=== PATIENT | male | born 1965 | race African-American/Black ===

== ENCOUNTER 2020-11-12 14:31 | Inpatient (IN) ==
[2020-11-12] MEDS ORDERED: Isovue-370 500 ML BOTTLE IVP ONE (15:55)
[2020-11-12] MEDS ORDERED: Morphine Sulfate 2 MG/ML SYRINGE IVP ONE (16:00)
[2020-11-12] MEDS ORDERED: 0.9 % Sodium Chloride 1,000 ML IV ONE (16:00)
[2020-11-12 17:08] LABS: Basophils % 0.1 %; Hematocrit 48.6 % (37.5-50.1); Immature Granulocytes % 0.8 % (0-4); Lymphocytes # 0.5 K/mcL (0.6-4.6); Lymphocytes % 3.3 %; Mean Corpuscular HGB Conc 32.9 g/dL (31.6-35.5); Mean Corpuscular Hemoglobin 29.4 pg (28.0-33.3); Mean Corpuscular Volume 89.3 fL (83.0-100.0); Mean Platelet Volume 10.8 fL (9.4-12.4); Monocytes # 0.2 K/mcL (0.0-1.3); Monocytes % 1.5 %; Neutrophils # 13.2 K/mcL (1.6-8.9); Platelet Count 135 K/mcL (140-400); Red Blood Count 5.44 M/mcL (4.19-5.50); Red Cell Distribution Width 13.4 % (11.5-14.5); Segmented Neutrophils % 94.3 %
[2020-11-12 17:15] LABS: INR 1.7; Prothrombin Time 19.4 Seconds (9.4-12.1)
[2020-11-12 17:18] LABS: Activated Partial Thrombo Time 26.3 Seconds (26.0-36.0)
[2020-11-12 18:35] LABS: Bilirubin,Urine Negative (Negative); Blood,Urine Large (Negative); Budding Yeast,Urine Few per hpf (None Seen); Clarity,Urine Turbid (Clear); Color,Urine Yellow (Yellow); Glucose,Urine (UA) 100 mg/dL (Normal); Ketones,Urine Negative (Negative); Leukocyte Esterase,Urine Negative (Negative); Mucus,Urine Few per lpf (None-Few); Nitrite,Urine Negative (Negative); PH,Urine 5.5 pH Units (5.0-8.0); Protein,Urine 100 mg/dL (Neg-Trace); Squamous Epithelial Cell,Urine Few per hpf (None-Few)
[2020-11-12 18:43] LABS: Amphetamine Screen,Urine Positive ng/mL (Cutoff=1000); Barbiturate Screen,Urine Negative ng/mL (Cutoff=200); Benzodiazepines Screen,Urine Negative ng/mL (Cutoff=200); Cannabinoid Screen,Urine Negative ng/mL (Cutoff = 50); Cocaine Screen,Urine Positive ng/mL (Cutoff= 300); Opiate Screen,Urine Positive ng/mL (Cutoff=300); Phencyclidine Screen,Urine Negative ng/mL (Cutoff=25)
[2020-11-12 18:51] LABS: Albumin 3.5 g/dL (3.5-5.7); Albumin/Globulin Ratio 1.3 (1.1-2.2); Alkaline Phosphatase 44 Units/L (34-104); BUN/Creatinine Ratio 9 (6-26); Bilirubin,Total 0.8 mg/dL (0.3-1.0); Blood Urea Nitrogen 36 mg/dL (6-20); Calcium 7.2 mg/dL (8.6-10.3); Carbon Dioxide 24 mEq/L (23-29); Chloride 99 mEq/L (98-107); Ethanol < 10 mg/dL (Less than 10); Globulin 2.6 g/dL (2.4-3.5); Glucose 113 mg/dL (70-105); Lipase 39 Units/L (11-82); Magnesium 2.2 mg/dL (1.6-2.6); Osmolality,Calculated 289 (280-300); Potassium 4.6 mEq/L (3.5-5.1); Sodium 135 mEq/L (136-145); Total Protein 6.1 g/dL (6.4-8.9); Troponin I 0.35 ng/mL (< 0.04); eGFR For African Americans 18 (> 60); eGFR For Non-African Americans 15 (> 60)
[2020-11-12 19:03] LABS: Alanine Aminotransferase 2381 Units/L (7-52); Aspartate Amino Transferase > 3000 Units/L (13-39); Creatine Kinase > 20000 Units/L (30-223); Thyroid Stimulating Hormone 1.464 mcIU/mL (0.340-5.600)
[2020-11-12] MEDS: 0.9 % Sodium Chloride 1,000 ML IVC SCH ×2 (20:13→22:28)
[2020-11-12] MEDS ORDERED: Ondansetron 4 MG/2 ML VIAL IVP ONE (21:24)
[2020-11-12] MEDS ORDERED: Naloxone 0.4 MG/ML INJ IVP PRN (22:31)
[2020-11-12] MEDS ORDERED: *HR* LORazepam 2 MG/ML VIAL IVP PRN ×3 (22:40)
[2020-11-12] MEDS ORDERED: 0.9 % Sodium Chloride 1,000 ML IVC SCH (22:45)
[2020-11-12] MEDS: Ondansetron 4 MG/2 ML VIAL IVP PRN (23:55)
[2020-11-13] MEDS ORDERED: Perflutren Lipid Microsphere 1.3 ML in 0.9 % Sodium Chloride 8.7 ML IVP PRN (00:05)
[2020-11-13 00:33] LABS: Basophils % 0.2 %; Eosinophils % 0.2 %; Hematocrit 46.6 % (37.5-50.1); Hemoglobin 15.3 g/dL (12.9-16.9); Immature Granulocytes % 0.5 % (0-4); Lymphocytes # 0.6 K/mcL (0.6-4.6); Lymphocytes % 4.4 %; Mean Corpuscular HGB Conc 32.8 g/dL (31.6-35.5); Mean Corpuscular Hemoglobin 29.5 pg (28.0-33.3); Monocytes # 0.2 K/mcL (0.0-1.3); Monocytes % 1.9 %; Neutrophils # 11.7 K/mcL (1.6-8.9); Platelet Count 122 K/mcL (140-400); Red Blood Count 5.18 M/mcL (4.19-5.50); Red Cell Distribution Width 13.2 % (11.5-14.5); Segmented Neutrophils % 92.8 %; White Blood Count 12.6 K/mcL (4.3-11.1)
[2020-11-13 00:52] LABS: Calcium 7.1 mg/dL (8.6-10.3); Potassium 4.9 mEq/L (3.5-5.1)
[2020-11-13] MEDS ORDERED: Prochlorperazine 10 MG/2 ML VIAL IVP ONE (01:03)
[2020-11-13 01:24] LABS: VBG HCO3 22 mEq/L (21-27); VBG PCO2 40 mmHg (41-51); VBG PH 7.35 pH Units (7.32-7.42); VBG PO2 130 mmHg (25-50)
[2020-11-13 01:56] LABS: Hepatitis B Surface Antigen Nonreactive (Nonreactive)
[2020-11-13 02:25] LABS: Hepatitis B Core IgM Nonreactive (Nonreactive)
[2020-11-13 02:29] LABS: Hepatitis A Antibody IgM Nonreactive (Nonreactive)
[2020-11-13 03:52] LABS: Hepatitis C Virus Antibody Reactive (Nonreactive)
[2020-11-13 05:22] LABS: INR 1.7; Prothrombin Time 18.9 Seconds (9.4-12.1)
[2020-11-13 05:25] LABS: Activated Partial Thrombo Time 26.2 Seconds (26.0-36.0)
[2020-11-13 05:34] LABS: BUN/Creatinine Ratio 9 (6-26); Blood Urea Nitrogen 44 mg/dL (6-20); Calcium 6.9 mg/dL (8.6-10.3); Carbon Dioxide 22 mEq/L (23-29); Chloride 103 mEq/L (98-107); Glucose 99 mg/dL (70-105); Osmolality,Calculated 289 (280-300); Potassium 5.3 mEq/L (3.5-5.1); Sodium 134 mEq/L (136-145); eGFR For African Americans 15 (> 60); eGFR For Non-African Americans 12 (> 60)
[2020-11-13] MEDS: 0.9 % Sodium Chloride 1,000 ML IVC SCH ×2 (05:40→10:12)
[2020-11-13 05:50] LABS: Creatine Kinase 18577 Units/L (30-223)
[2020-11-13] MEDS ORDERED: Insulin Human Regular 10 UNIT in 0.9 % Sodium Chloride 10 ML IV ONE (05:51)
[2020-11-13] MEDS ORDERED: *HR* Dextrose 50 % in Water (Vial) 50 ML VIAL IVP ONE (05:53)
[2020-11-13] MEDS ORDERED: Sodium Bicarbonate 75 MEQ in 0.45 % Sodium Chloride 1,000 ML IVC SCH (05:55)
[2020-11-13 06:14] LABS: Alanine Aminotransferase 1732 Units/L (7-52); Albumin/Globulin Ratio 1.3 (1.1-2.2); Alkaline Phosphatase 44 Units/L (34-104); Aspartate Amino Transferase > 3000 Units/L (13-39); Bilirubin,Direct 0.5 mg/dL (0.0-0.2); Bilirubin,Indirect 0.5 mg/dL (0.0-1.0); Globulin 2.3 g/dL (2.4-3.5); Total Protein 5.3 g/dL (6.4-8.9)
[2020-11-13] MEDS: Calcium Gluconate 1gm/50mL 1 GM/50 ML BAG IVPB PRN (06:49)
[2020-11-13 06:53] LABS: Basophils % 0.2 %; Eosinophils % 0.4 %; Hematocrit 41.4 % (37.5-50.1); Immature Granulocytes % 0.7 % (0-4); Lymphocytes # 0.6 K/mcL (0.6-4.6); Lymphocytes % 5.3 %; Mean Corpuscular HGB Conc 33.1 g/dL (31.6-35.5); Mean Corpuscular Hemoglobin 29.4 pg (28.0-33.3); Mean Corpuscular Volume 88.8 fL (83.0-100.0); Monocytes # 0.2 K/mcL (0.0-1.3); Monocytes % 2.1 %; Neutrophils # 9.7 K/mcL (1.6-8.9); Platelet Count 119 K/mcL (140-400); Red Blood Count 4.66 M/mcL (4.19-5.50); Red Cell Distribution Width 13.1 % (11.5-14.5); Segmented Neutrophils % 91.3 %; White Blood Count 10.6 K/mcL (4.3-11.1)
[2020-11-13 06:54] LABS: Hemoglobin 13.7 g/dL (12.9-16.9)
[2020-11-13 07:12] LABS: Calcium 6.9 mg/dL (8.6-10.3)
[2020-11-13] MEDS: Azithromycin 500 MG in 0.9 % Sodium Chloride 250 ML IVPB SCH (08:58)
[2020-11-13] MEDS: cefTRIAXone 2,000 MG in Water for inj. (sterile) 20 ML IVP SCH (08:58)
[2020-11-13] MEDS: Sodium Bicarbonate 150 MEQ in D5% in Water 1,000 ML IVC SCH ×2 (13:19→21:50)
[2020-11-13 13:57] LABS: VBG Ionized Calcium 0.95 mmol/L (1.15-1.35)
[2020-11-13 14:17] LABS: Complement C3 28 mg/dL (87-200)
[2020-11-13 14:34] LABS: Alanine Aminotransferase 1514 Units/L (7-52); Albumin/Globulin Ratio 1.3 (1.1-2.2); Alkaline Phosphatase 45 Units/L (34-104); Aspartate Amino Transferase > 3000 Units/L (13-39); BUN/Creatinine Ratio 9 (6-26); Bilirubin,Direct 0.7 mg/dL (0.0-0.2); Bilirubin,Indirect 0.4 mg/dL (0.0-1.0); Bilirubin,Total 1.1 mg/dL (0.3-1.0); Blood Urea Nitrogen 46 mg/dL (6-20); Calcium 7.3 mg/dL (8.6-10.3); Carbon Dioxide 20 mEq/L (23-29); Chloride 101 mEq/L (98-107); Creatine Kinase 14500 Units/L (30-223); Globulin 2.4 g/dL (2.4-3.5); Glucose 103 mg/dL (70-105); Magnesium 1.9 mg/dL (1.6-2.6); Osmolality,Calculated 288 (280-300); Phosphorous 4.3 mg/dL (2.7-4.5); Potassium 4.6 mEq/L (3.5-5.1); Sodium 133 mEq/L (136-145); Total Protein 5.4 g/dL (6.4-8.9); eGFR For African Americans 14 (> 60); eGFR For Non-African Americans 11 (> 60)
[2020-11-13 16:20] LABS: Protein/Creatinine Ratio,Urine 1.49 mg/mg (0.00-0.20)
[2020-11-13 17:30] LABS: Potassium 4.7 mEq/L (3.5-5.1)
[2020-11-13 17:31] LABS: % Iron Saturation 23 % (20-55); Iron 58 mcg/dL (65-175); Transferrin 177 mg/dL (203-362)
[2020-11-13 17:43] LABS: Ferritin > 1500 ng/mL (20-250)
[2020-11-13] MEDS: Thiamine (B-1) 100 MG, Folic Acid 1 MG, MVI, adult with vitamin K 10 ML in 0.9 % Sodi... IVPB SCH (18:33)
[2020-11-14 01:08] LABS: Calcium 6.7 mg/dL (8.6-10.3)
[2020-11-14 05:30] LABS: VBG Ionized Calcium 0.91 mmol/L (1.15-1.35)
[2020-11-14] MEDS: Sodium Bicarbonate 150 MEQ in D5% in Water 1,000 ML IVC SCH (05:31)
[2020-11-14 05:34] LABS: Basophils % 0.2 %; Eosinophils # 0.1 K/mcL (0.0-0.6); Hematocrit 38.3 % (37.5-50.1); Hemoglobin 13.3 g/dL (12.9-16.9); Immature Granulocytes % 0.5 % (0-4); Immature Platelets 4.7 % (1.1-6.1); Lymphocytes # 0.7 K/mcL (0.6-4.6); Lymphocytes % 6.6 %; Mean Corpuscular HGB Conc 34.7 g/dL (31.6-35.5); Mean Corpuscular Hemoglobin 29.6 pg (28.0-33.3); Mean Corpuscular Volume 85.1 fL (83.0-100.0); Mean Platelet Volume 10.9 fL (9.4-12.4); Monocytes # 0.5 K/mcL (0.0-1.3); Monocytes % 5.3 %; Neutrophils # 8.7 K/mcL (1.6-8.9); Platelet Count 112 K/mcL (140-400); Red Cell Distribution Width 12.3 % (11.5-14.5); Segmented Neutrophils % 86.4 %
[2020-11-14 06:03] LABS: Albumin 2.5 g/dL (3.5-5.7); Albumin/Globulin Ratio 1.2 (1.1-2.2); Bilirubin,Direct 0.6 mg/dL (0.0-0.2); Bilirubin,Indirect 0.6 mg/dL (0.0-1.0); Bilirubin,Total 1.2 mg/dL (0.3-1.0); Globulin 2.1 g/dL (2.4-3.5); Magnesium 1.6 mg/dL (1.6-2.6); Phosphorous 3.3 mg/dL (2.7-4.5); Total Protein 4.6 g/dL (6.4-8.9)
[2020-11-14 06:40] LABS: Calcium 6.9 mg/dL (8.6-10.3); Potassium 3.6 mEq/L (3.5-5.1)
[2020-11-14] MEDS: Calcium Gluconate 1gm/50mL 1 GM/50 ML BAG IVPB PRN (06:57)
[2020-11-14] MEDS: cefTRIAXone 2,000 MG in Water for inj. (sterile) 20 ML IVP SCH (08:28)
[2020-11-14] MEDS: 0.9 % Sodium Chloride 1,000 ML IVC SCH ×4 (08:30→22:25)
[2020-11-14] MEDS: Azithromycin 500 MG in 0.9 % Sodium Chloride 250 ML IVPB SCH (08:31)
[2020-11-14] MEDS: *HR* Heparin 5,000 UNIT/ML VIAL SQ SCH ×3 (08:31→18:23)
[2020-11-14 10:56] LABS: Potassium,Urine 47.9 mEq/L; Sodium, Urine 63.8 mEq/L
[2020-11-14] MEDS ORDERED: Dexmedetomidine HCl 400 MCG/100 ML MLS IVC SCH (11:15)
[2020-11-14] MEDS: Calcium Gluconate 1gm/50mL 1 GM/50 ML BAG IVPB SCH ×2 (11:35→12:14)
[2020-11-14] MEDS ORDERED: Calcium Gluconate 2,000 MG in D5% in Water 100 ML IVPB PRN (14:00)
[2020-11-14] MEDS: Ondansetron 4 MG/2 ML VIAL IVP PRN (15:42)
[2020-11-14 17:27] LABS: VBG Ionized Calcium 1.01 mmol/L (1.15-1.35)
[2020-11-14] MEDS: Thiamine (B-1) 100 MG, Folic Acid 1 MG, MVI, adult with vitamin K 10 ML in 0.9 % Sodi... IVPB SCH (17:32)
[2020-11-14 17:36] LABS: Magnesium 1.9 mg/dL (1.6-2.6); Potassium 3.9 mEq/L (3.5-5.1)
[2020-11-14] MEDS ORDERED: Naloxone 0.4 MG/ML INJ IVP PRN (17:49)
[2020-11-14] MEDS ORDERED: *HR* LORazepam 2 MG/ML VIAL IVP PRN (17:49)
[2020-11-14] MEDS ORDERED: Thiamine (B-1) 100 MG, Folic Acid 1 MG, MVI, adult with vitamin K 10 ML in 0.9 % Sodi... IVPB SCH (18:00)
[2020-11-14] MEDS: *HR* LORazepam 2 MG/ML VIAL IVP PRN (23:10)
[2020-11-15] MEDS: *HR* LORazepam 2 MG/ML VIAL IVP PRN ×5 (03:37→23:13)
[2020-11-15] MEDS: Ondansetron 4 MG/2 ML VIAL IVP PRN ×4 (03:41→20:39)
[2020-11-15 04:32] LABS: VBG Ionized Calcium 1.03 mmol/L (1.15-1.35)
[2020-11-15 04:38] LABS: Immature Granulocytes % 0.5 % (0-4)
[2020-11-15 04:40] LABS: Basophils % 0.4 %; Eosinophils # 0.2 K/mcL (0.0-0.6); Eosinophils % 2.1 %; Hematocrit 38.6 % (37.5-50.1); Hemoglobin 13.2 g/dL (12.9-16.9); Immature Platelets 4.7 % (1.1-6.1); Lymphocytes # 0.8 K/mcL (0.6-4.6); Lymphocytes % 8.8 %; Mean Corpuscular HGB Conc 34.2 g/dL (31.6-35.5); Mean Corpuscular Hemoglobin 29.5 pg (28.0-33.3); Mean Corpuscular Volume 86.2 fL (83.0-100.0); Mean Platelet Volume 10.9 fL (9.4-12.4); Monocytes # 1.1 K/mcL (0.0-1.3); Monocytes % 11.3 %; Neutrophils # 7.4 K/mcL (1.6-8.9); Platelet Count 104 K/mcL (140-400); Red Blood Count 4.48 M/mcL (4.19-5.50); Red Cell Distribution Width 12.6 % (11.5-14.5); Segmented Neutrophils % 76.9 %; White Blood Count 9.6 K/mcL (4.3-11.1)
[2020-11-15] MEDS: *HR* Heparin 5,000 UNIT/ML VIAL SQ SCH ×2 (05:12→17:43)
[2020-11-15] MEDS: 0.9 % Sodium Chloride 1,000 ML IVC SCH ×5 (05:13→19:26)
[2020-11-15 05:19] LABS: Albumin 2.5 g/dL (3.5-5.7); Albumin/Globulin Ratio 1.1 (1.1-2.2); Bilirubin,Direct 0.5 mg/dL (0.0-0.2); Bilirubin,Indirect 0.5 mg/dL (0.0-1.0); Globulin 2.2 g/dL (2.4-3.5); Magnesium 1.8 mg/dL (1.6-2.6); Phosphorous 3.4 mg/dL (2.7-4.5); Total Protein 4.7 g/dL (6.4-8.9)
[2020-11-15 06:50] LABS: Calcium 7.5 mg/dL (8.6-10.3); Potassium 4.4 mEq/L (3.5-5.1)
[2020-11-15 06:57] LABS: Serine Protease-3 Antibody 1 AU/mL (0-19)
[2020-11-15 06:57] LABS: Smooth Muscle Ab Titer IgG <1:20 (<1:20)
[2020-11-15 07:00] LABS: HSV 2 Glycoprotein G IgG >23.60 IV (<=0.89)
[2020-11-15 07:00] LABS: ANA IgG by ELISA NONE DETECTED (None Detected)
[2020-11-15] MEDS: cefTRIAXone 2,000 MG in Water for inj. (sterile) 20 ML IVP SCH (08:35)
[2020-11-15] MEDS: Azithromycin 500 MG in 0.9 % Sodium Chloride 250 ML IVPB SCH (08:35)
[2020-11-15 08:48] LABS: Calcium 7.3 mg/dL (8.6-10.3)
[2020-11-15] MEDS ORDERED: Nicotine 2 MG GUM BC PRN (17:54)
[2020-11-15] MEDS: Nicotine 21 MG PATCH.TD24 TD SCH (18:18)
[2020-11-15] MEDS: *HR* Promethazine 25 MG/ML VIAL IM PRN (21:03)
[2020-11-16 00:22] LABS: Alpha 2 Globulin (PEP) 0.74 g/dL (0.48-1.05); Beta Globulin (PEP) 0.61 g/dL (0.48-1.10)
[2020-11-16] MEDS: *HR* LORazepam 2 MG/ML VIAL IVP PRN ×6 (01:23→23:42)
[2020-11-16] MEDS: 0.9 % Sodium Chloride 1,000 ML IVC SCH ×4 (03:33→23:40)
[2020-11-16] MEDS: Ondansetron 4 MG/2 ML VIAL IVP PRN ×2 (03:58→23:02)
[2020-11-16 05:03] LABS: Basophils % 0.4 %; Eosinophils # 0.2 K/mcL (0.0-0.6); Eosinophils % 2.3 %; Immature Granulocytes % 0.6 % (0-4); Immature Platelets 4.3 % (1.1-6.1); Lymphocytes # 0.8 K/mcL (0.6-4.6); Lymphocytes % 8.2 %; Mean Corpuscular HGB Conc 33.3 g/dL (31.6-35.5); Mean Corpuscular Hemoglobin 29.2 pg (28.0-33.3); Mean Corpuscular Volume 87.6 fL (83.0-100.0); Mean Platelet Volume 11.2 fL (9.4-12.4); Monocytes # 1.4 K/mcL (0.0-1.3); Monocytes % 15.2 %; Neutrophils # 6.9 K/mcL (1.6-8.9); Platelet Count 108 K/mcL (140-400); Red Blood Count 4.45 M/mcL (4.19-5.50); Red Cell Distribution Width 12.8 % (11.5-14.5); Segmented Neutrophils % 73.3 %; White Blood Count 9.4 K/mcL (4.3-11.1)
[2020-11-16 05:08] LABS: INR 1.1; Prothrombin Time 13.1 Seconds (9.4-12.1)
[2020-11-16 05:19] LABS: VBG HCO3 22 mEq/L (21-27); VBG PCO2 33 mmHg (41-51); VBG PH 7.43 pH Units (7.32-7.42); VBG PO2 141 mmHg (25-50)
[2020-11-16 05:20] LABS: Calcium 8.1 mg/dL (8.6-10.3); Potassium 4.6 mEq/L (3.5-5.1)
[2020-11-16 05:33] LABS: Albumin 2.7 g/dL (3.5-5.7); Albumin/Globulin Ratio 1.2 (1.1-2.2); Bilirubin,Direct 0.3 mg/dL (0.0-0.2); Bilirubin,Indirect 0.5 mg/dL (0.0-1.0); Bilirubin,Total 0.8 mg/dL (0.3-1.0); Globulin 2.3 g/dL (2.4-3.5); Magnesium 1.8 mg/dL (1.6-2.6); Phosphorous 4.1 mg/dL (2.7-4.5)
[2020-11-16] MEDS: *HR* Heparin 5,000 UNIT/ML VIAL SQ SCH ×2 (05:36→17:12)
[2020-11-16 07:19] LABS: IFE Reflexed NOT DONE
[2020-11-16] MEDS: Azithromycin 500 MG in 0.9 % Sodium Chloride 250 ML IVPB SCH (08:07)
[2020-11-16] MEDS: cefTRIAXone 2,000 MG in Water for inj. (sterile) 20 ML IVP SCH (08:07)
[2020-11-16] MEDS: Folic Acid 1 MG TABLET PO SCH (11:13)
[2020-11-16] MEDS: Multivit/Ca/Min/Fe/FA 1 TAB TABLET PO SCH (11:13)
[2020-11-16] MEDS: Nicotine 21 MG PATCH.TD24 TD SCH (17:12)
[2020-11-16] MEDS: Thiamine (B-1) 100 MG TABLET PO SCH ×2 (17:12→19:33)
[2020-11-16] MEDS: *HR* Promethazine 25 MG/ML VIAL IM PRN (19:23)
[2020-11-16] MEDS ORDERED: Melatonin 3 MG TABLET PO PRN (21:53)
[2020-11-17] MEDS: *HR* Promethazine 25 MG/ML VIAL IM PRN (01:24)
[2020-11-17] MEDS ORDERED: 0.9 % Sodium Chloride 1,000 ML IVC SCH (04:00)
[2020-11-17] MEDS: *HR* LORazepam 2 MG/ML VIAL IVP PRN ×2 (04:06→09:38)
[2020-11-17] MEDS: *HR* Heparin 5,000 UNIT/ML VIAL SQ SCH (05:01)
[2020-11-17 06:31] LABS: Calcium 8.4 mg/dL (8.6-10.3); Potassium 4.7 mEq/L (3.5-5.1)
[2020-11-17 06:32] LABS: Alanine Aminotransferase 454 Units/L (7-52); Albumin 2.5 g/dL (3.5-5.7); Albumin/Globulin Ratio 1.2 (1.1-2.2); Alkaline Phosphatase 14 Units/L (34-104); Aspartate Amino Transferase 239 Units/L (13-39); Bilirubin,Direct 0.2 mg/dL (0.0-0.2); Bilirubin,Indirect 0.4 mg/dL (0.0-1.0); Bilirubin,Total 0.6 mg/dL (0.3-1.0); Creatine Kinase 1598 Units/L (30-223); Globulin 2.1 g/dL (2.4-3.5); Magnesium < 0.5 mg/dL (1.6-2.6); Phosphorous 4.9 mg/dL (2.7-4.5); Total Protein 4.6 g/dL (6.4-8.9)
[2020-11-17] MEDS ORDERED: 0.9 % Sodium Chloride 250 ML IVC PRN (07:42)
[2020-11-17] MEDS ORDERED: *HR* Heparin 10,000 UNIT/10 ML VIAL IV PRN (07:42)
[2020-11-17] MEDS ORDERED: 0.9 % Sodium Chloride 1,000 ML PRIME SCH (07:45)
[2020-11-17] MEDS: Thiamine (B-1) 100 MG TABLET PO SCH (08:03)
[2020-11-17] MEDS: Folic Acid 1 MG TABLET PO SCH (08:03)
[2020-11-17] MEDS: Multivit/Ca/Min/Fe/FA 1 TAB TABLET PO SCH (08:03)
[2020-11-17 08:19] VITALS: PULSE 63
[2020-11-17 08:21] VITALS: O2SAT 94
[2020-11-17] MEDS ORDERED: Azithromycin 250 MG TABLET PO SCH (09:00)
[2020-11-17] MEDS ORDERED: *HR* LORazepam 2 MG/ML VIAL IM STA (09:58)
[2020-11-17] MEDS ORDERED: Dexmedetomidine HCl 400 MCG/100 ML MLS IVC SCH (10:30)
[2020-11-17 13:49] VITALS: BP 121/69
[2020-11-17 15:18] VITALS: TEMP 98.4
[2020-11-18 11:24] LABS: HCV Quant Interpretation DETECTED (Not Detected)
[2020-11-21 10:49] LABS: HCV Genotype by Sequencing 1A OR 1B
== END 2020-11-17 14:56 | disposition left against medical advice (07) | DRG 351 ==
LOC: EMEROOARM 14:31 → 2ANU 14:31 → ICNU 22:25 → SUATTDRO 22:31 → ICNU 23:25
PROVIDERS: ADMIT Student in an Organized Health Care Education/Training Program; ATTEND Internal Medicine

== ENCOUNTER 2020-11-17 17:02 | Inpatient (IN) ==
[2020-11-17] MEDS ORDERED: 0.9 % Sodium Chloride 500 ML IVC ONE (18:04)
[2020-11-17 18:41] LABS: Basophils % 0.4 %; Eosinophils # 0.3 K/mcL (0.0-0.6); Eosinophils % 2.7 %; Hematocrit 40.3 % (37.5-50.1); Hemoglobin 13.5 g/dL (12.9-16.9); Immature Granulocytes % 0.9 % (0-4); Immature Platelets 5.1 % (1.1-6.1); Lymphocytes % 9.7 %; Mean Corpuscular HGB Conc 33.5 g/dL (31.6-35.5); Mean Corpuscular Hemoglobin 29.7 pg (28.0-33.3); Mean Corpuscular Volume 88.6 fL (83.0-100.0); Mean Platelet Volume 11.3 fL (9.4-12.4); Monocytes # 1.6 K/mcL (0.0-1.3); Monocytes % 16.1 %; Neutrophils # 6.9 K/mcL (1.6-8.9); Platelet Count 119 K/mcL (140-400); Red Blood Count 4.55 M/mcL (4.19-5.50); Red Cell Distribution Width 13.6 % (11.5-14.5); Segmented Neutrophils % 70.2 %; White Blood Count 9.9 K/mcL (4.3-11.1)
[2020-11-17 18:46] LABS: Prothrombin Time 11.7 Seconds (9.4-12.1)
[2020-11-17 18:49] LABS: Activated Partial Thrombo Time 22.4 Seconds (26.0-36.0)
[2020-11-17 19:18] LABS: Alanine Aminotransferase 554 Units/L (7-52); Albumin 3.2 g/dL (3.5-5.7); Albumin/Globulin Ratio 1.2 (1.1-2.2); Alkaline Phosphatase 51 Units/L (34-104); Aspartate Amino Transferase 255 Units/L (13-39); BUN/Creatinine Ratio 6 (6-26); Bilirubin,Direct 0.2 mg/dL (0.0-0.2); Bilirubin,Indirect 0.4 mg/dL (0.0-1.0); Bilirubin,Total 0.6 mg/dL (0.3-1.0); Blood Urea Nitrogen 66 mg/dL (6-20); Calcium 8.9 mg/dL (8.6-10.3); Carbon Dioxide 23 mEq/L (23-29); Chloride 99 mEq/L (98-107); Ethanol < 10 mg/dL (Less than 10); Globulin 2.7 g/dL (2.4-3.5); Glucose 118 mg/dL (70-105); Osmolality,Calculated 298 (280-300); Potassium 4.4 mEq/L (3.5-5.1); Sodium 134 mEq/L (136-145); Total Protein 5.9 g/dL (6.4-8.9); Troponin I 0.03 ng/mL (< 0.04); eGFR For African Americans 6 (> 60); eGFR For Non-African Americans 5 (> 60)
[2020-11-17 19:37] LABS: Bacteria,Urine Few per hpf (None-Few); Bilirubin,Urine Negative (Negative); Blood,Urine Large (Negative); Clarity,Urine Clear (Clear); Color,Urine Light-Yellow (Yellow); Glucose,Urine (UA) Normal (Normal); Ketones,Urine Negative (Negative); Leukocyte Esterase,Urine Negative (Negative); Nitrite,Urine Negative (Negative); Protein,Urine Trace mg/dL (Neg-Trace); RBC,Urine 30-50 per hpf (0-3); Specific Gravity,Urine 1.007 (1.010-1.025); Squamous Epithelial Cell,Urine Few per hpf (None-Few); Urobilinogen,Urine Normal (Normal)
[2020-11-17] MEDS ORDERED: Azithromycin 500 MG in 0.9 % Sodium Chloride 250 ML IVPB ONE (19:46)
[2020-11-17] MEDS ORDERED: cefTRIAXone 1,000 MG in 0.9 % Sodium Chloride Mini Bag 100 ML IVPB ONE (19:46)
[2020-11-17 19:52] LABS: Amphetamine Screen,Urine Negative ng/mL (Cutoff=1000); Barbiturate Screen,Urine Negative ng/mL (Cutoff=200); Benzodiazepines Screen,Urine Positive ng/mL (Cutoff=200); Cannabinoid Screen,Urine Negative ng/mL (Cutoff = 50); Cocaine Screen,Urine Positive ng/mL (Cutoff= 300); Opiate Screen,Urine Positive ng/mL (Cutoff=300); Phencyclidine Screen,Urine Negative ng/mL (Cutoff=25)
[2020-11-17] MEDS ORDERED: Naloxone 0.4 MG/ML INJ IVP PRN (20:38)
[2020-11-17] MEDS: Ondansetron 4 MG/2 ML VIAL IVP PRN (22:37)
[2020-11-17] MEDS ORDERED: *HR* LORazepam 2 MG/ML VIAL IVP PRN (23:35)
[2020-11-18] MEDS ORDERED: *HR* LORazepam 2 MG/ML VIAL IVP ONE (01:09)
[2020-11-18] MEDS ORDERED: 0.9 % Sodium Chloride 1,000 ML IVC SCH (01:15)
[2020-11-18 05:39] LABS: Basophils # 0.1 K/mcL (0.0-0.2); Basophils % 0.7 %; Eosinophils # 0.1 K/mcL (0.0-0.6); Eosinophils % 1.4 %; Hematocrit 40.9 % (37.5-50.1); Immature Granulocytes % 1.4 % (0-4); Lymphocytes # 0.8 K/mcL (0.6-4.6); Lymphocytes % 7.6 %; Mean Corpuscular HGB Conc 31.8 g/dL (31.6-35.5); Mean Corpuscular Hemoglobin 29.8 pg (28.0-33.3); Mean Corpuscular Volume 93.8 fL (83.0-100.0); Mean Platelet Volume 10.8 fL (9.4-12.4); Monocytes # 1.6 K/mcL (0.0-1.3); Monocytes % 16.6 %; Neutrophils # 7.1 K/mcL (1.6-8.9); Platelet Count 134 K/mcL (140-400); Red Blood Count 4.36 M/mcL (4.19-5.50); Red Cell Distribution Width 14.2 % (11.5-14.5); Segmented Neutrophils % 72.3 %; White Blood Count 9.8 K/mcL (4.3-11.1)
[2020-11-18 05:52] LABS: INR 1.1; Prothrombin Time 12.2 Seconds (9.4-12.1)
[2020-11-18 06:10] LABS: Albumin/Globulin Ratio 1.2 (1.1-2.2); Bilirubin,Total 0.7 mg/dL (0.3-1.0); Calcium 8.8 mg/dL (8.6-10.3); Globulin 2.6 g/dL (2.4-3.5); Magnesium 2.1 mg/dL (1.6-2.6); Phosphorous 5.1 mg/dL (2.7-4.5); Potassium 4.7 mEq/L (3.5-5.1); Total Protein 5.6 g/dL (6.4-8.9)
[2020-11-18] MEDS: *HR* Heparin 5,000 UNIT/ML VIAL SQ SCH ×2 (06:26→19:44)
[2020-11-18] MEDS: cefTRIAXone 1,000 MG in Water for inj. (sterile) 10 ML IVP SCH (08:32)
[2020-11-18] MEDS: Folic Acid 1 MG TABLET PO SCH (08:32)
[2020-11-18] MEDS: *HR* LORazepam 2 MG/ML VIAL IVP PRN (08:44)
[2020-11-18] MEDS ORDERED: Thiamine (B-1) 100 MG TABLET PO SCH (09:00)
[2020-11-18] MEDS ORDERED: Azithromycin 250 MG TABLET PO SCH (09:00)
[2020-11-18] MEDS ORDERED: Furosemide 40 MG/4 ML VIAL IVP ONE (09:24)
[2020-11-18] MEDS: Dexmedetomidine HCl 400 MCG/100 ML MLS IVC SCH (09:49)
[2020-11-18] MEDS ORDERED: 0.9 % Sodium Chloride 250 ML IVC PRN (13:44)
[2020-11-18] MEDS ORDERED: 0.9 % Sodium Chloride 1,000 ML PRIME SCH (13:45)
[2020-11-18] MEDS ORDERED: *HR* Heparin 5,000 UNIT/ML VIAL ONE (14:41)
[2020-11-18] MEDS ORDERED: Heparin 1,000 UNITS/500 mL 500 ML ONE (14:56)
[2020-11-18] MEDS: Thiamine (B-1) 100 MG, Folic Acid 1 MG, MVI, adult with vitamin K 10 ML in 0.9 % Sodi... IVPB SCH (19:44)
[2020-11-19] MEDS: *HR* LORazepam 2 MG/ML VIAL IVP PRN ×2 (01:30→05:30)
[2020-11-19] MEDS ORDERED: Ipratropium/Albuterol Neb 3 ML IH PRN (02:19)
[2020-11-19 04:38] LABS: Hematocrit 34.8 % (37.5-50.1); Hemoglobin 11.5 g/dL (12.9-16.9); Immature Platelets 4.7 % (1.1-6.1); Mean Corpuscular Hemoglobin 29.3 pg (28.0-33.3); Mean Corpuscular Volume 88.5 fL (83.0-100.0); Mean Platelet Volume 11.2 fL (9.4-12.4); Red Blood Count 3.93 M/mcL (4.19-5.50); Red Cell Distribution Width 13.9 % (11.5-14.5)
[2020-11-19 04:56] LABS: Calcium 8.1 mg/dL (8.6-10.3); Magnesium 1.9 mg/dL (1.6-2.6); Phosphorous 4.9 mg/dL (2.7-4.5); Potassium 4.1 mEq/L (3.5-5.1)
[2020-11-19] MEDS: *HR* Heparin 5,000 UNIT/ML VIAL SQ SCH ×2 (05:18→17:01)
[2020-11-19] MEDS ORDERED: Water for inj. (sterile) 20 ML IV ONE (08:09)
[2020-11-19] MEDS: Folic Acid 1 MG TABLET PO SCH (08:12)
[2020-11-19] MEDS: cefTRIAXone 1,000 MG in Water for inj. (sterile) 10 ML IVP SCH (08:13)
[2020-11-19] MEDS: Thiamine (B-1) 100 MG, Folic Acid 1 MG, MVI, adult with vitamin K 10 ML in 0.9 % Sodi... IVPB SCH (17:00)
[2020-11-19] MEDS: Melatonin 3 MG TABLET PO SCH (21:40)
[2020-11-20 03:52] LABS: Basophils # 0.1 K/mcL (0.0-0.2); Basophils % 0.6 %; Eosinophils # 0.2 K/mcL (0.0-0.6); Eosinophils % 2.3 %; Hematocrit 33.6 % (37.5-50.1); Hemoglobin 11.1 g/dL (12.9-16.9); Immature Granulocytes % 0.7 % (0-4); Lymphocytes % 11.7 %; Mean Corpuscular Hemoglobin 29.4 pg (28.0-33.3); Mean Corpuscular Volume 89.1 fL (83.0-100.0); Mean Platelet Volume 11.8 fL (9.4-12.4); Monocytes # 1.5 K/mcL (0.0-1.3); Monocytes % 17.2 %; Neutrophils # 5.8 K/mcL (1.6-8.9); Platelet Count 119 K/mcL (140-400); Red Blood Count 3.77 M/mcL (4.19-5.50); Red Cell Distribution Width 14.1 % (11.5-14.5); Segmented Neutrophils % 67.5 %; White Blood Count 8.6 K/mcL (4.3-11.1)
[2020-11-20 04:13] LABS: Calcium 8.1 mg/dL (8.6-10.3); Magnesium 1.8 mg/dL (1.6-2.6); Phosphorous 4.8 mg/dL (2.7-4.5); Potassium 3.6 mEq/L (3.5-5.1)
[2020-11-20] MEDS: *HR* Heparin 5,000 UNIT/ML VIAL SQ SCH ×2 (04:34→18:33)
[2020-11-20] MEDS ORDERED: 0.9 % Sodium Chloride 250 ML IVC PRN (07:17)
[2020-11-20] MEDS: Folic Acid 1 MG TABLET PO SCH (07:24)
[2020-11-20] MEDS: cefTRIAXone 1,000 MG in Water for inj. (sterile) 10 ML IVP SCH (07:25)
[2020-11-20] MEDS: Ondansetron 4 MG/2 ML VIAL IVP PRN (07:25)
[2020-11-20] MEDS: Dexmedetomidine HCl 400 MCG/100 ML MLS IVC SCH ×2 (07:35→09:05)
[2020-11-20] MEDS ORDERED: *HR* Heparin 10,000 UNIT/10 ML VIAL IV PRN (13:36)
[2020-11-20] MEDS: Thiamine (B-1) 100 MG, Folic Acid 1 MG, MVI, adult with vitamin K 10 ML in 0.9 % Sodi... IVPB SCH (18:32)
[2020-11-20] MEDS: Melatonin 3 MG TABLET PO SCH (21:05)
[2020-11-20] MEDS: *HR* LORazepam 2 MG/ML VIAL IVP PRN (21:15)
[2020-11-21] MEDS: *HR* LORazepam 2 MG/ML VIAL IVP PRN ×2 (01:32→03:29)
[2020-11-21] MEDS: Ondansetron 4 MG/2 ML VIAL IVP PRN (03:45)
[2020-11-21 03:53] LABS: Hematocrit 32.4 % (37.5-50.1); Hemoglobin 10.6 g/dL (12.9-16.9); Mean Corpuscular HGB Conc 32.7 g/dL (31.6-35.5); Mean Corpuscular Hemoglobin 29.5 pg (28.0-33.3); Mean Corpuscular Volume 90.3 fL (83.0-100.0); Mean Platelet Volume 11.3 fL (9.4-12.4); Platelet Count 130 K/mcL (140-400); Red Blood Count 3.59 M/mcL (4.19-5.50); Red Cell Distribution Width 14.3 % (11.5-14.5); White Blood Count 9.8 K/mcL (4.3-11.1)
[2020-11-21 04:12] LABS: Calcium 8.1 mg/dL (8.6-10.3); Magnesium 1.6 mg/dL (1.6-2.6); Phosphorous 3.5 mg/dL (2.7-4.5); Potassium 3.4 mEq/L (3.5-5.1)
[2020-11-21 04:16] VITALS: BP 168/95; PULSE 73; TEMP 99.2; O2SAT 96
[2020-11-21] MEDS: *HR* Heparin 5,000 UNIT/ML VIAL SQ SCH (06:35)
[2020-11-21] MEDS ORDERED: Thiamine (B-1) 100 MG TABLET PO SCH (09:00)
[2020-11-21] MEDS ORDERED: amLODIPine 5 MG TABLET PO SCH (09:00)
[2020-11-21] MEDS ORDERED: Ferumoxytol 510 MG in 0.9 % Sodium Chloride 100 ML IVPB ONE (09:00)
== END 2020-11-21 07:24 | disposition left against medical advice (07) | DRG 469 ==
LOC: 2NNU 17:02 → EMEROOARM 17:02 → SUATTDRO 20:02 → 2NNU 21:12
PROVIDERS: ADMIT Internal Medicine; ATTEND Internal Medicine